=== PATIENT | male | born 1985 | race Two or more races ===

== ENCOUNTER 2019-06-29 10:27 | Inpatient (IN) | payer MEDICAID ==
[~2019-06-29] VITALS: Ht 177.8 cm; Wt 102.0 kg
[2019-06-29] MEDS ORDERED: SERT50TA12 PO (10:43)
[2019-06-29] MEDS ORDERED: DIVA125T32 PO (10:43)
[2019-06-29] MEDS ORDERED: MIRT15 PO (10:43)
[2019-06-29] MEDS ORDERED: FLUP1 PO (10:43)
[2019-06-29] MEDS ORDERED: LORazepam 2 MG/ML VIAL IM ONE (11:30)
[2019-06-29] MEDS ORDERED: HALOPERIDOL LACTATE 5 MG/ML VIAL IM ONE (11:30)
[2019-06-29] MEDS ORDERED: DiphenhydrAMINE HCL 50 MG/ML VIAL IM ONE (11:30)
[2019-06-29] MEDS ORDERED: HALOPERIDOL 5 MG TABLET PO PRN (13:30)
[2019-06-30 02:02] VITALS: BP 132/62
[2019-06-30] MEDS ORDERED: INFLUENZA VIRUS VACCINE QVS 2019-20 (3YR+)/PF 60 MCG/0.5 ML SYRINGE IM ONE (02:30)
[2019-06-30] MEDS: FluPHENAZine HCL 1 MG TABLET PO SCH ×2 (10:15→20:10)
[2019-06-30] MEDS: SERTRALINE HCL 50 MG TABLET PO SCH (10:15)
[2019-06-30] MEDS: DIVALPROEX SODIUM 250 MG DR TABLET PO SCH ×2 (10:15→17:00)
[2019-06-30 10:35] VITALS: BP 119/86
[2019-06-30] MEDS ORDERED: MAGNESIUM HYDROXIDE SUSPENSION 30 ML UDCUP PO PRN (14:30)
[2019-06-30] MEDS ORDERED: CloNIDine HCL 0.1 MG TABLET PO PRN (14:30)
[2019-06-30] MEDS ORDERED: IBUPROFEN 400 MG TABLET PO PRN (14:30)
[2019-06-30] MEDS ORDERED: GuaiFENesin/D-METHORPHAN [SUGAR-FREE] 200-20MG/10 ML SYRUP UDCUP PO PRN (14:30)
[2019-06-30] MEDS ORDERED: ONDANSETRON HCL 4 MG TABLET PO PRN (14:30)
[2019-06-30] MEDS ORDERED: ACETAMINOPHEN 325 MG TABLET PO PRN (14:30)
[2019-06-30] MEDS ORDERED: NICOTINE 14 MG/24 HOUR PATCH TD PRN (14:30)
[2019-06-30] MEDS ORDERED: PETROLATUM,WHITE 28 GM JELLY TP PRN (14:30)
[2019-06-30] MEDS ORDERED: DOCUSATE SODIUM 100 MG CAPSULE PO PRN (14:30)
[2019-06-30] MEDS ORDERED: MAG HYDROX/AL HYDROX/SIMETH ES 30 ML SUSPENSION UDCUP PO PRN (14:30)
[2019-06-30] MEDS ORDERED: LOPERAMIDE HCL 2 MG CAPSULE PO PRN (14:30)
[2019-06-30] MEDS ORDERED: ALBUTEROL SULFATE HFA 90 MCG/PUFF 8 GM INHALER IH PRN (14:30)
[2019-06-30] MEDS: LORazepam 2 MG TABLET PO PRN (17:02)
[2019-06-30] MEDS: MIRTAZAPINE 15 MG TABLET PO SCH (20:10)
[2019-06-30] MEDS: ZOLPIDEM TARTRATE 10 MG TABLET PO PRN (20:10)
[2019-07-01] MEDS: SERTRALINE HCL 50 MG TABLET PO SCH (08:20)
[2019-07-01] MEDS: FluPHENAZine HCL 1 MG TABLET PO SCH ×3 (08:20→20:25)
[2019-07-01] MEDS: DIVALPROEX SODIUM 250 MG DR TABLET PO SCH ×2 (08:20→17:00)
[2019-07-01] MEDS: LORazepam 2 MG TABLET PO PRN ×2 (11:15→15:56)
[2019-07-01] MEDS: MIRTAZAPINE 15 MG TABLET PO SCH ×2 (20:15→20:25)
[2019-07-01] MEDS: ZOLPIDEM TARTRATE 10 MG TABLET PO PRN (20:25)
[2019-07-02 06:40] LABS: BASOPHILS % (AUTO) 0.6 % (0.0-2.0); EOSINOPHILS % (AUTO) 3.6 % (1.0-6.0); HEMATOCRIT 47.1 % (41-53); HEMOGLOBIN 16.1 g/dL (13.5-17.5); LYMPHOCYTES # (AUTO) 4.6 K/uL (1.0-4.8); LYMPHOCYTES % (AUTO) 44.1 % (22.0-44.0); MEAN CORPUSCULAR HEMOGLOBIN 29.3 pg (26.0-34.0); MEAN CORPUSCULAR HGB CONC 34.3 G/dL (31.0-37.0); MEAN CORPUSCULAR VOLUME 86 fL (80-100); MONOCYTES # (AUTO) 0.9 K/uL (0.1-1.0); MONOCYTES % (AUTO) 8.8 % (2.0-9.0); NEUTROPHILS # (AUTO) 4.4 K/uL (1.8-7.7); NEUTROPHILS % (AUTO) 42.9 % (40.0-70.0); PLATELET COUNT (AUTO) 249 K/uL (150-450); RED BLOOD CELL COUNT(AUTO) 5.51 MIL/uL (4.50-5.90); RED CELL DISTRIBUTION WIDTH 13.6 % (11.5-14.5)
[2019-07-02 06:54] LABS: HEMOGLOBIN A1C 5.9 % (4.5-6.2)
[2019-07-02 07:07] LABS: ALANINE AMINOTRANSFERASE 82 U/L (12-78); ALBUMIN 3.3 g/dL (3.4-5.0); ALKALINE PHOSPHATASE 124 U/L (46-116); ANION GAP 6 mmol/L (8-16); ASPARTATE AMINOTRANSFERASE 42 U/L (15-37); BILIRUBIN,TOTAL 0.2 mg/dL (0.1-1.0); CARBON DIOXIDE 29 mmol/L (22-29); CHLORIDE 104 mmol/L (98-107); CHOL/HDL RATIO 6.1 (4.2-7.3); CHOLESTEROL 195 mg/dL (131-200); CREATININE 1.05 mg/dL (0.60-1.30); GLOMERULAR FILTR. RATE CALC > 60 mL/min (>60); GLUCOSE,RANDOM 100 mg/dL (70-110); HDL CHOLESTEROL 32 mg/dL (40-60); LDL CHOL (CALC.) 115 mg/dL (0-130); POTASSIUM 4.2 mmol/L (3.5-5.1); SODIUM SERUM 139 mmol/L (136-145); THYROID STIMULATING HORMONE 2.35 uIU/mL (0.36-3.74); TOTAL PROTEIN, SERUM 7.3 g/dL (6.4-8.2); TRIGLYCERIDES 241 mg/dL (15-150); UREA NITROGEN, BLOOD 11 mg/dL (7-18)
[2019-07-02] MEDS: FluPHENAZine HCL 1 MG TABLET PO SCH ×2 (08:15→20:05)
[2019-07-02] MEDS: DIVALPROEX SODIUM 250 MG DR TABLET PO SCH ×2 (08:16→16:23)
[2019-07-02] MEDS: SERTRALINE HCL 50 MG TABLET PO SCH (08:16)
[2019-07-02] MEDS: LORazepam 2 MG TABLET PO PRN ×2 (12:43→18:30)
[2019-07-02] MEDS: MIRTAZAPINE 15 MG TABLET PO SCH (20:05)
[2019-07-02] MEDS: ZOLPIDEM TARTRATE 10 MG TABLET PO PRN (20:05)
[2019-07-03 09:03] VITALS: BP 127/71
[2019-07-03] MEDS: SERTRALINE HCL 50 MG TABLET PO SCH (09:28)
[2019-07-03] MEDS: FluPHENAZine HCL 1 MG TABLET PO SCH ×2 (09:29→21:05)
[2019-07-03] MEDS: DIVALPROEX SODIUM 250 MG DR TABLET PO SCH ×2 (09:29→17:59)
[2019-07-03] MEDS: LORazepam 2 MG TABLET PO PRN (18:38)
[2019-07-03] MEDS: MIRTAZAPINE 15 MG TABLET PO SCH (21:05)
[2019-07-04] MEDS: DIVALPROEX SODIUM 250 MG DR TABLET PO SCH ×2 (09:30→16:03)
[2019-07-04] MEDS: FluPHENAZine HCL 1 MG TABLET PO SCH ×2 (09:31→20:29)
[2019-07-04] MEDS: SERTRALINE HCL 50 MG TABLET PO SCH (09:31)
[2019-07-04] MEDS: LORazepam 2 MG TABLET PO PRN (16:03)
[2019-07-04] MEDS: MIRTAZAPINE 15 MG TABLET PO SCH (20:28)
[2019-07-05] MEDS: FluPHENAZine HCL 1 MG TABLET PO SCH ×2 (08:38→20:00)
[2019-07-05] MEDS: DIVALPROEX SODIUM 250 MG DR TABLET PO SCH ×2 (08:38→17:25)
[2019-07-05] MEDS: SERTRALINE HCL 50 MG TABLET PO SCH (08:38)
[2019-07-05] MEDS: LORazepam 2 MG TABLET PO PRN ×2 (13:00→20:00)
[2019-07-05] MEDS: MIRTAZAPINE 15 MG TABLET PO SCH (20:00)
[2019-07-06] MEDS: DIVALPROEX SODIUM 250 MG DR TABLET PO SCH ×2 (08:18→16:37)
[2019-07-06] MEDS: FluPHENAZine HCL 1 MG TABLET PO SCH ×2 (08:19→20:35)
[2019-07-06] MEDS: SERTRALINE HCL 50 MG TABLET PO SCH (08:19)
[2019-07-06] MEDS: LORazepam 2 MG TABLET PO PRN (17:08)
[2019-07-06] MEDS: MIRTAZAPINE 15 MG TABLET PO SCH (20:35)
[2019-07-06] MEDS: ZOLPIDEM TARTRATE 10 MG TABLET PO PRN (20:36)
[2019-07-07] MEDS: SERTRALINE HCL 50 MG TABLET PO SCH (09:10)
[2019-07-07] MEDS: DIVALPROEX SODIUM 250 MG DR TABLET PO SCH ×2 (09:10→17:29)
[2019-07-07] MEDS: FluPHENAZine HCL 1 MG TABLET PO SCH ×2 (09:11→20:00)
[2019-07-07] MEDS: LORazepam 2 MG TABLET PO PRN ×2 (12:48→18:53)
[2019-07-07] MEDS: ZOLPIDEM TARTRATE 10 MG TABLET PO PRN (20:00)
[2019-07-07] MEDS: MIRTAZAPINE 15 MG TABLET PO SCH (20:00)
[2019-07-08] MEDS: DIVALPROEX SODIUM 250 MG DR TABLET PO SCH ×2 (08:24→16:08)
[2019-07-08] MEDS: SERTRALINE HCL 50 MG TABLET PO SCH (08:25)
[2019-07-08] MEDS: FluPHENAZine HCL 1 MG TABLET PO SCH ×2 (08:25→20:14)
[2019-07-08] MEDS: LORazepam 2 MG TABLET PO PRN (17:45)
[2019-07-08] MEDS: MIRTAZAPINE 15 MG TABLET PO SCH (20:14)
[2019-07-08] MEDS: ZOLPIDEM TARTRATE 10 MG TABLET PO PRN (20:15)
[2019-07-09] MEDS: DIVALPROEX SODIUM 250 MG DR TABLET PO SCH (08:13)
[2019-07-09] MEDS: SERTRALINE HCL 50 MG TABLET PO SCH (08:13)
[2019-07-09] MEDS: FluPHENAZine HCL 1 MG TABLET PO SCH (08:14)
[2019-07-09] MEDS ORDERED: DIVA-76 PO (10:00)
[2019-07-09] MEDS ORDERED: FLUP1TAB PO (10:02)
[2019-07-09] MEDS ORDERED: MIRT15 PO (10:03)
== END 2019-07-09 12:15 | disposition home or self-care (01) | DRG 751 ==
LOC: EMS 10:28 → 3EC 06-30 00:26
PROVIDERS: ADMIT Psychiatry & Neurology Child & Adolescent Psychiatry; ATTEND Psychiatry & Neurology Child & Adolescent Psychiatry
DX: F29 Unspecified psychosis not due to a substance or known physiological condition (principal); E78.5 Hyperlipidemia, unspecified; F10.10 Alcohol abuse, uncomplicated; F41.0 Panic disorder [episodic paroxysmal anxiety]; G44.209 Tension-type headache, unspecified, not intractable; F32.9 Major depressive disorder, single episode, unspecified; F19.10 Other psychoactive substance abuse, uncomplicated; F41.9 Anxiety disorder, unspecified; Z65.3 Problems related to other legal circumstances; Z79.899 Other long term (current) drug therapy; Z71.51 Drug abuse counseling and surveillance of drug abuser; Z71.41 Alcohol abuse counseling and surveillance of alcoholic
CPT/HCPCS: 83036; 84443; 96372; J1200; J1630; J2060